=== PATIENT | male | born 1945 | race Caucasian/White ===

== ENCOUNTER → 2024-05-13 07:16 | Outpatient (REF) | payer MEDICARE, OTHER, SELFPAY | LOC: HWRCS 07:16 | PROVIDERS: ATTENDING PHYSICIAN Internal Medicine; FAMILY PHYSICIAN Family Medicine | DX: I34.0 Nonrheumatic mitral (valve) insufficiency (principal) | CPT/HCPCS: 93306 ==

== ENCOUNTER 2025-05-28 18:23 | Emergency (ER) | payer MEDICARE, OTHER, SELFPAY ==
[2025-05-28 18:25] VITALS: BP 115/51
--- NOTE | 2025-05-28 19:05 | ED.GENMED ---
History of Present Illness
General
Chief Complaint: Abnormal Lab Value
Time Seen by Provider: 05/28/25 18:41
History of Present Illness
History of Present Illness:
80-year-old man with presents to the emergency department for evaluation of abnormal outpatient labs. He had a serum white count of over 20,000. He apparently started Cimzia for rheumatoid arthritis 5 months ago and as a result has had his labs
followed as an outpatient, initially had normal white counts that increased to 11,000 in November, repeat this month showed marked increase. He reports night sweats for the past 3 months but no weight loss. Denies any focal infectious symptoms such
as URI symptoms, chest pain, nausea, vomiting, or urinary symptoms.
Past History
Past History
ED Past Medical History: HTN and Other (Polymyalgia rheumatica)
ED Past Surgical History: Orthopedic (Shoulder replacement, knee replacement)
Social History
Tobacco: Non-smoker
Alcohol: None
Review of Systems
Review of Systems
Allergies reviewed?: Yes
All Other Systems: ROS reviewed and negative except as documented in HPI and ROS
Phy Exam
Physical Exam
Physical Exam:
GEN: Well appearing, NAD, WDWN
HEENT: Oral mucosa moist, no scleral icterus
Cardiac: Regular rate and rhythm, no murmurs
Lung: No respiratory distress, no tachypnea, lungs clear to auscultation bilaterally
Abdomen: Soft, grossly nontender
MSK: No gross deformity or injuries
Skin: Good color, no pallor or jaundice, no rashes
Neuro: AO x3, moves all extremities freely
Psych: Calm, cooperative
Course
Orders/Labs/Results
Orders:
Orders
05/28/25 19:05
CR Chest - 2 Views Urgent
Comment:
Reason For Exam: fever/night sweats
05/28/25 19:32
Basic Metabolic Panel Urgent
CRP [C-Reactive Protein] Urgent
Complete Blood Count/With Diff Urgent
05/28/25 20:08
Blood Culture Q30M
KELLIE Source: Blood/Venous
Specimen Description:
05/28/25 20:41
CMP [Comprehensive Metabolic Panel] Urgent
Blood Culture Q30M
KELLIE Source: Blood/Venous
Specimen Description:
05/28/25 20:54
Urinalysis Reflex To Culture Urgent
Date Specimen was Collected: 05/28/25
Time Specimen was Collected: 19:14
Abnormal Lab Results
05/28/25 05/28/25
19:32 20:41
WBC 19.8 H 10^3/uL
(4.8-10.8)
RBC 3.42 L 10^6/uL
(4.70-6.10)
Hgb 10.4 L g/dL
(13.0-18.0)
Hct 32.2 L %
(39.0-52.0)
MCV 94.2 H fL
(80.0-94.0)
MCHC 32.3 L g/dL
(33.0-37.0)
RDW 15.9 H %
(11.5-14.5)
Plt Count 121 L 10^3/uL
(130-400)
MPV 10.8 H fL
(7.4-10.4)
Abs Immat Gran (auto) 0.1 H 10^3/uL
(0-0.05)
Absolute Neuts (auto) 0.8 L* 10^3/uL
(1.4-6.5)
Absolute Lymphs (auto) 16.2 H 10^3/uL
(1.2-3.4)
Absolute Monos (auto) 0.8 H 10^3/uL
(0.1-0.6)
Absolute Eos (auto) 1.8 H 10^3/uL
(0-0.7)
Neutrophils % 3.9 L %
(42.2-75.2)
Lymphocytes % 81.8 H %
(20.5-51.1)
Eosinophils % 9.0 H %
(0-6)
BUN 30 H mg/dl 29 H mg/dl
(9-20) (9-20)
AST 62 H U/L
(17-59)
Alkaline Phosphatase 151 H U/L
(38-126)
C-Reactive Protein 15.10 H mg/L
(0.0-10.00)
05/28/25 19:32
05/28/25 20:41
Vital Signs
Initial and Last Documented VS:
Initial Vital Signs
Temp Pulse Resp BP Pulse Ox
97.7 F 91 20 115/51 99
05/28/25 18:25 05/28/25 18:25 05/28/25 18:25 05/28/25 18:25 05/28/25 18:25
Last Documented Vital Signs
Temp Pulse Resp BP Pulse Ox
97.7 F 86 19 111/57 95
05/28/25 18:25 05/28/25 22:00 05/28/25 22:00 05/28/25 22:00 05/28/25 22:00
MDM/Problems Addressed
MDM/Problems Addressed:
Interestingly patient has leukocytosis with neutropenia. He appears clinically well. I reviewed the findings with hematology oncology on-call who agrees with assessment to discontinue biologic therapy and have labs rechecked in 1 to 2 weeks, will
follow-up as an outpatient with heme-onc if counts are not improving
*Pulse Oximetry
SaO2: 99
Oxygen Mode of Delivery: Room air
Patient hypoxic: no
*Critical Care Note
Total Time (30-74mins, 75-104mins- exclusive of procedures): Not Applicable
ED Attending Note
-
Portions of this chart may have been created with voice recognition software.� Occasional wrong word or��sound alike� substitutions may have occurred due to the inherent limitations of voice recognition software.
Discharge Plan
Departure
Patient Disposition: Home (Routine Discharge)
Date of Disposition: 05/28/25
Time of Disposition: 22:18
Patient with high blood pressure during this ER visit?: No
Discharge Problem:
Leukocytosis, Neutropenia
Instructions: Neutrophil count
Prescriptions:
No Action
metoprolol succinate [Toprol XL] 50 MG tablet extended release 24 hr
50 mg PO DAILY
calcium carbonate-vitamin D3 [Calcium 600 + D(3)] 600 mg-10 mcg (400 unit) Tablet
1 tab PO BID Qty: 0
lisinopril-hydrochlorothiazide 20-12.5 mg Tablet
0.5 tab PO DAILY
Theragen Tablet
1 tab PO DAILY
ibuprofen [Advil] 200 mg Tablet
200 mg PO BID
rosuvastatin [Crestor] 5 mg Tablet
5 mg PO DAILY
Referrals:
Kavitha Pope DO [Active, Hematology / Oncology]
Jorge Pro MD [Family Provider, Family Practice]
Activity Restrictions/Additional Instructions:
Skip your next dose of Cimzia and have your CBC rechecked in the next 2 weeks. If your blood counts are improving this is likely indicating the medication is the culprit however if your blood counts are not improving you need to follow-up with
hematology as provided on your paperwork
Interventions
Interventions:
*Risk Screen - Suicide Last Done: 05/28/25 19:22
*General Assessment Last Done: 05/28/25 18:25
*Neglect/Abuse Screening Last Done: 05/28/25 19:22
*ED- Fall Risk Assessment Last Done: 05/28/25 19:22
*ED COVID-19 Vaccine History Last Done: 05/28/25 18:33
*ED Influenza Vaccine History Last Done: 05/28/25 19:22
*Nursing Disposition Last Done: 05/28/25 22:25
Discharge Date and Time
Discharge Date/Time: 05/28/25 22:32
Print Language: AZERI
[2025-05-28 20:00] LABS: Blood Urea Nitrogen 30 mg/dl (9-20); Calcium 9.4 mg/dl (8.4-10.2); Carbon Dioxide 25 mmol/L (22-30); Chloride 107 mmol/L (98-107); Glucose 86 mg/dl (70-99); Sodium 137 mmol/L (135-145); eGFR > 60.00
[2025-05-28 20:02] LABS: C-Reactive Protein 15.10 mg/L (0.0-10.00)
[2025-05-28 20:38] LABS: Hematocrit 32.2 % (39.0-52.0); Hemoglobin 10.4 g/dL (13.0-18.0); Mean Corp Hgb Conc. 32.3 g/dL (33.0-37.0); Mean Corpuscular Volume 94.2 fL (80.0-94.0); Nucleated Red Blood Cells % 0 % (-); Platelet Count 121 10^3/uL (130-400); Red Cell Dist. Width 15.9 % (11.5-14.5)
[2025-05-28 20:54] VITALS: BP 116/61
[2025-05-28 21:00] VITALS: BP 112/55
[2025-05-28 21:07] LABS: ALT (SGPT) 20 U/L (0-50); AST (SGOT) 62 U/L (17-59); Albumin 3.7 g/dl (3.5-5.0); Alkaline Phosphatase 151 U/L (38-126); Blood Urea Nitrogen 29 mg/dl (9-20); Calcium 9.4 mg/dl (8.4-10.2); Carbon Dioxide 25 mmol/L (22-30); Chloride 107 mmol/L (98-107); Glucose 83 mg/dl (70-99); Potassium 4.6 mmol/L (3.5-5.1); Sodium 137 mmol/L (135-145); Total Protein 6.7 g/dl (6.3-8.2); eGFR > 60.00
[2025-05-28 21:13] LABS: Urine Character Clear (Clear)
[2025-05-28 22:00] VITALS: BP 111/57
== END 2025-05-28 22:32 | disposition home or self-care (01) ==
LOC: EMR 18:23
PROVIDERS: Physician Assistant; EMERGENCY PHYSICIAN Student in an Organized Health Care Education/Training Program; FAMILY PHYSICIAN Family Medicine
DX: D70.9 Neutropenia, unspecified (principal); R79.89 Other specified abnormal findings of blood chemistry; I10 Essential (primary) hypertension; M35.3 Polymyalgia rheumatica; M06.9 Rheumatoid arthritis, unspecified; Z96.619 Presence of unspecified artificial shoulder joint; Z96.659 Presence of unspecified artificial knee joint
CPT/HCPCS: 99283; 71046; 80048; 80053; 81003; 85025; 86140; 87040

== ENCOUNTER → 2025-06-08 12:22 | Outpatient (REF) | payer MEDICARE, OTHER, SELFPAY | LOC: RAD 12:22 | PROVIDERS: ATTENDING PHYSICIAN Internal Medicine Hematology & Oncology; FAMILY PHYSICIAN Family Medicine | DX: D72.820 Lymphocytosis (symptomatic) (principal) | CPT/HCPCS: 70491; 71260; 74177; Q9967 ==